=== PATIENT | male | born 1965 | race Caucasian/White ===

== ENCOUNTER 2017-04-23 08:02 | Outpatient (CLI) | payer OTHER ==
[2017-04-23 08:56] LABS: eGFR (African) > 60; eGFR (Non-African) > 60
== END 2017-04-23 08:03 ==
LOC: LAB 08:02
PROVIDERS: ATTEND Family Medicine
DX: Z00.00 Encounter for general adult medical examination without abnormal findings (principal); Z13.29 Encounter for screening for other suspected endocrine disorder; R20.0 Anesthesia of skin
CPT/HCPCS: 36415; 80053; 80061; 82607; 84443

== ENCOUNTER 2018-10-14 07:11 | Outpatient (CLI) | payer OTHER ==
[2018-10-14 08:28] LABS: HDL 48 mg/dL (>40); eGFR (Non-African) > 60
== END 2018-10-14 07:13 ==
LOC: LAB 07:11
PROVIDERS: ATTEND Family Medicine
DX: Z00.00 Encounter for general adult medical examination without abnormal findings (principal)
CPT/HCPCS: 36415; 80053; 80061; 84153